=== PATIENT | female | born 1995 ===

== ENCOUNTER 2020-05-19 14:32 | Inpatient (IN) | payer MEDICAID ==
[~2020-05-19] VITALS: Ht 165.1 cm; Wt 70.9 kg
[2020-05-23] MEDS ORDERED: OXYTOCIN 30U/ 0.9% NaCL 500ML 500 ML IV ONE (04:19)
[2020-05-23] MEDS ORDERED: NEWBORN KIT ONE (04:28)
[2020-05-23] MEDS ORDERED: MISOPROSTOL 200 MCG TABLET ONE (04:28)
[2020-05-23] MEDS ORDERED: OXYTOCIN 30U/ 0.9% NaCL 500ML 500 ML ONE (04:28)
[2020-05-23] MEDS ORDERED: LIDOCAINE 1%, 20ML ONE (04:28)
[2020-05-23] MEDS ORDERED: TERBUTALINE 1 MG/ML, 1ML SQ PRN (04:30)
[2020-05-23] MEDS ORDERED: TERBUTALINE 1 MG/ML, 1ML IVPush PRN (04:30)
[2020-05-23 04:38] LABS: MICROSCOPIC INDICATED
[2020-05-23 04:48] LABS: AMPHETAMINE SCREEN, URINE Negative (Negative); BARBITURATE SCREEN, URINE Negative (Negative); BENZODIAZEPINE SCREEN, URINE Negative (Negative); CANNABINOID SCREEN, URINE Negative (Negative); COCAINE SCREEN, URINE Negative (Negative); METHADONE SCREEN, URINE Negative (Negative); OPIATE SCREEN, URINE Negative (Negative)
[2020-05-23 04:56] LABS: BASOPHILS # (AUTO) 0.03 x10^3/uL (0-0.1); BASOPHILS % (AUTO) 0 % (0-1); EOSINOPHILS # (AUTO) 0.01 x10^3/uL (0-0.4); EOSINOPHILS % (AUTO) 0 % (1-7); LYMPHOCYTES # (AUTO) 1.65 x10^3/uL (1-3.4); LYMPHOCYTES % (AUTO) 11 % (22-44); MD NO; MEAN CORPUSCULAR HEMOGLOBIN 32.2 pg (27.0-34.8); MEAN CORPUSCULAR HGB CONC 33.4 g/dL (32.4-35.8); MEAN CORPUSCULAR VOLUME 96.5 fL (80-100); MEAN PLATELET VOLUME 8.9 fL (7.4-10.4); MONOCYTES # (AUTO) 0.88 x10^3/uL (0.2-0.8); MONOCYTES % (AUTO) 6 % (2-9); NEUTROPHILS # (AUTO) 11.99 x10^3/uL (1.8-6.8); NEUTROPHILS % (AUTO) 82 % (42-75); PLATELET COUNT 200 x10^3/uL (130-400); RED BLOOD COUNT 3.65 x10^6/uL (3.82-5.3); RED CELL DISTRIBUTION WIDTH 13.4 % (9.6-15.2)
[2020-05-23] MEDS ORDERED: PLEASE ENTER ALLERGIES MC SCH (05:00)
[2020-05-23] MEDS: PLEASE ENTER HEIGHT AND WEIGHT MC SCH ×2 (05:00→13:00)
[2020-05-23] MEDS ORDERED: IBUPROFEN 600 MG TABLET ONE (06:20)
[2020-05-23] MEDS ORDERED: IBUPROFEN 200 MG TABLET PO PRN (06:30)
[2020-05-23] MEDS: OXYTOCIN 30U/ 0.9% NaCL 500ML 500 ML IV SCH ×11 (06:34→20:54)
[2020-05-23] MEDS ORDERED: MAGNESIUM HYDROXIDE 8%, 30ML UDC PO PRN (07:00)
[2020-05-23] MEDS ORDERED: TRANEXAMIC ACID 100 MG/ML, 10ML IV ONE (07:00)
[2020-05-23] MEDS ORDERED: MISOPROSTOL 200 MCG TABLET SL PRN (07:00)
[2020-05-23] MEDS ORDERED: METHYLERGONOVINE 0.2 MG/ML IM PRN (07:00)
[2020-05-23] MEDS ORDERED: ONDANSETRON 2MG/ML, 2ML IV PRN (07:00)
[2020-05-23] MEDS ORDERED: MISOPROSTOL 200 MCG TABLET PR PRN (07:00)
[2020-05-23] MEDS ORDERED: OXYcodone/APAP 5/325MG TABLET PO PRN ×2 (07:00)
[2020-05-23] MEDS ORDERED: SIMETHICONE 80 MG CHEW TAB PO PRN (07:00)
[2020-05-23] MEDS ORDERED: ACETAMINOPHEN 325 MG TABLET PO PRN (07:00)
[2020-05-23] MEDS ORDERED: CALCIUM CARBONATE 500 MG TAB.CHEW PO PRN (07:00)
[2020-05-23 08:05] VITALS: BP 113/71
[2020-05-23 12:00] VITALS: BP 115/78
[2020-05-23 14:33] LABS: BASOPHILS # (AUTO) 0.03 x10^3/uL (0-0.1); BASOPHILS % (AUTO) 0 % (0-1); EOSINOPHILS % (AUTO) 0 % (1-7); LYMPHOCYTES # (AUTO) 1.13 x10^3/uL (1-3.4); LYMPHOCYTES % (AUTO) 5 % (22-44); MD NO; MEAN CORPUSCULAR HEMOGLOBIN 32.1 pg (27.0-34.8); MEAN CORPUSCULAR HGB CONC 33.5 g/dL (32.4-35.8); MEAN CORPUSCULAR VOLUME 95.9 fL (80-100); MEAN PLATELET VOLUME 9.5 fL (7.4-10.4); MONOCYTES # (AUTO) 0.92 x10^3/uL (0.2-0.8); MONOCYTES % (AUTO) 4 % (2-9); NEUTROPHILS # (AUTO) 19.84 x10^3/uL (1.8-6.8); NEUTROPHILS % (AUTO) 91 % (42-75); PLATELET COUNT 202 x10^3/uL (130-400); RED BLOOD COUNT 3.35 x10^6/uL (3.82-5.3); RED CELL DISTRIBUTION WIDTH 13.2 % (9.6-15.2)
[2020-05-23] MEDS: IBUPROFEN 600 MG TABLET PO PRN ×2 (15:13→20:55)
[2020-05-23] MEDS: PRENATAL VIT/IRON/FA 1 EACH TABLET PO SCH (15:17)
[2020-05-23] MEDS: DOCUSATE 100 MG CAPSULE PO PRN ×2 (15:17→20:55)
[2020-05-23 19:30] VITALS: BP 113/72
[2020-05-24 00:55] VITALS: BP 115/76
[2020-05-24] MEDS: IBUPROFEN 600 MG TABLET PO PRN (04:38)
[2020-05-24 04:39] VITALS: BP 105/68
[2020-05-24] MEDS: PRENATAL VIT/IRON/FA 1 EACH TABLET PO SCH (07:41)
[2020-05-24] MEDS: DOCUSATE 100 MG CAPSULE PO PRN (07:42)
[2020-05-24 08:30] VITALS: BP 110/70
[2020-05-24] MEDS ORDERED: MEASLES,MUMPS&RUBELLA VACC/PF 0.5 ML SQ-VACC ONE ×2 (09:30→10:00)
== END 2020-05-24 13:50 | disposition home or self-care (01) | DRG 807 ==
LOC: LDIP 05-23 04:14 → 2NW 05-23 08:24
PROVIDERS: ADMIT Obstetrics & Gynecology; ATTEND Obstetrics & Gynecology
PROC: 10E0XZZ Delivery of Products of Conception, External Approach (ICD-10-PCS; principal; 2020-05-23)
PROC: 0KQM0ZZ Repair Perineum Muscle, Open Approach (ICD-10-PCS; 2020-05-23)
DX: O62.9 Abnormality of forces of labor, unspecified (principal); Z37.0 Single live birth; Z3A.40 40 weeks gestation of pregnancy; O70.1 Second degree perineal laceration during delivery; Z20.828 Contact with and (suspected) exposure to other viral communicable diseases
CPT/HCPCS: 36415; 80307; 81001; 85025; 86592; 86850; 86900; 87086; 87635; G0378